=== PATIENT | female | born 2000 | race Caucasian/White ===

== ENCOUNTER 2024-10-27 18:00 | Inpatient (IN) | payer OTHER ==
[2024-10-27] MEDS ORDERED: Lidocaine 1% (PF) 30 ML VIAL SC PRN (19:20)
[2024-10-27] MEDS ORDERED: Diphenoxylate HCl/Atropine Tablet PO PRN (19:20)
[2024-10-27] MEDS ORDERED: Carboprost 250 MCG/ML AMP IM PRN (19:20)
[2024-10-27] MEDS ORDERED: Ibuprofen 800 MG TAB PO PRN (19:20)
[2024-10-27] MEDS ORDERED: hydrALAZINE 20 MG/ML VIAL SLOW IVP PRN (19:20)
[2024-10-27] MEDS ORDERED: Acetaminophen 500 MG TAB PO PRN (19:20)
[2024-10-27] MEDS ORDERED: Tranexamic Acid 1,000 MG/10 ML VIAL IVP PRN (19:20)
[2024-10-27] MEDS ORDERED: Methylergonovine 0.2 MG/ML VIAL IM PRN (19:20)
[2024-10-27] MEDS ORDERED: HYDROcodone/Acetaminophen 5/325 mg Tablet PO PRN (19:20)
[2024-10-27] MEDS ORDERED: Oxytocin 30 units/NS 500 ML 500 ML IV SCH ×3 (19:30)
[2024-10-27 20:59] VITALS: BMI 34.5
[2024-10-27 22:17] LABS: Hematocrit 36.9 % (34.9-44.5); Hemoglobin 12.0 g/dL (12.0-15.5); Mean Corpuscular Hemoglobin 28.5 pg (27.0-33.0); Mean Corpuscular Volume 87.6 fL (81.6-98.3); Platelet Count 268 10x3/uL (150-450); Red Blood Cell (RBC) Count 4.21 10x6/uL (3.90-5.03); White Blood Cell (WBC) Count 11.26 10x3/uL (3.5-10.5)
[2024-10-27 22:52] LABS: Syphilis Antibody Index 0.09 S/CO (<1.00 Non-Reactive)
[2024-10-27 22:54] LABS: Hep B Surf Ag - L&D Non-Reactive S/CO (NonReactive)
[2024-10-28] MEDS ORDERED: Bupivacaine 0.25% HCL 30 ML VIAL ONE (10:00)
[2024-10-28] MEDS: fentaNYL/Ropivacaine Epidural 100 ML ONE (11:02)
[2024-10-28] MEDS ORDERED: Ondansetron PF 4 MG/2 ML Vial IVP PRN ×3 (11:25→16:02)
[2024-10-28] MEDS ORDERED: diphenhydrAMINE 50 MG/ML VIAL IVP PRN ×2 (11:25→16:02)
[2024-10-28] MEDS ORDERED: Acetaminophen 325 MG TAB PO PRN (11:25)
[2024-10-28] MEDS ORDERED: fentaNYL 2 mcg/Ropivacaine 0.2% Epidural 100 ML CADD EPIDURAL SCH (11:30)
[2024-10-28] MEDS ORDERED: Communication Order-Pharmacy FS SCH ×2 (11:30→16:15)
[2024-10-28] MEDS: Ondansetron PF 4 MG/2 ML Vial IVP PRN ×2 (12:01→19:45)
[2024-10-28] MEDS: CEFAZOLIN 2 GM VIAL ONE (13:10)
[2024-10-28] MEDS: Lidocaine 2% MPF 10 ML AMP (For Epidural Use) ONE (16:00)
[2024-10-28] MEDS: Oxytocin 10 UNITS/ML VIAL ONE (16:00)
[2024-10-28] MEDS: PHENYLEPHRINE-NS 100 MCG/ML 10 ML SYRINGE ONE (16:00)
[2024-10-28] MEDS: Ondansetron PF 4 MG/2 ML Vial ONE (16:00)
[2024-10-28] MEDS ORDERED: Ketorolac Tromethamine 30 MG (1 mL) VIAL IVP PRN (16:02)
[2024-10-28] MEDS ORDERED: Meperidine HCl/PF 25 MG (1 mL) VIAL SLOW IVP PRN (16:02)
[2024-10-28] MEDS: Ketorolac Tromethamine 30 MG (1 mL) VIAL IVP SCH ×2 (16:27→21:47)
[2024-10-28] MEDS ORDERED: diphenhydrAMINE 25 MG CAP PO PRN (18:08)
[2024-10-28] MEDS ORDERED: Simethicone Chewable 80 MG TAB PO PRN (18:08)
[2024-10-28] MEDS ORDERED: Bisacodyl 10 MG SUPP PR PRN (18:08)
[2024-10-28] MEDS ORDERED: Lanolin Ointment 7 GM TUBE TOP PRN (18:08)
[2024-10-28] MEDS ORDERED: hydrALAZINE 20 MG/ML VIAL SLOW IVP PRN (18:08)
[2024-10-28] MEDS: Boostrix 0.5 ML (Tdap) VIAL (>/=7 yrs of age) IM ONE (19:16)
[2024-10-28] MEDS: Ferrous Sulfate 325 MG TAB PO SCH (21:20)
[2024-10-29 05:49] LABS: Hematocrit 34.2 % (34.9-44.5); Hemoglobin 11.1 g/dL (12.0-15.5); Mean Corpuscular Hemoglobin 28.4 pg (27.0-33.0); Mean Corpuscular Volume 87.5 fL (81.6-98.3); Platelet Count 231 10x3/uL (150-450); Red Blood Cell (RBC) Count 3.91 10x6/uL (3.90-5.03); White Blood Cell (WBC) Count 11.31 10x3/uL (3.5-10.5)
[2024-10-29] MEDS: HYDROcodone/Acetaminophen 5/325 mg Tablet PO PRN (10:39)
[2024-10-29] MEDS: Ibuprofen 800 MG TAB PO SCH (15:01)
[2024-10-30] MEDS: HYDROcodone/Acetaminophen 5/325 mg Tablet PO PRN (07:57)
[2024-10-31 14:42] VITALS: TEMP 98.3
[2024-10-31 16:23] VITALS: BP 124/74
== END 2024-10-31 19:00 | disposition home or self-care (01) | DRG 788 ==
LOC: CSHLD 18:29 → CSHANTE 19:57 → CSHLD 20:59 → CSHPP 10-28 17:30
PROVIDERS: ADMIT Family Medicine; ATTEND Family Medicine
PROC: 3E0P7VZ Introduction of Hormone into Female Reproductive, Via Natural or Artificial Opening (ICD-10-PCS; 2024-10-27)
PROC: 10D00Z1 Extraction of Products of Conception, Low, Open Approach (ICD-10-PCS; principal; 2024-10-28)
DX: O76 Abnormality in fetal heart rate and rhythm complicating labor and delivery (principal); O36.5930 Maternal care for other known or suspected poor fetal growth, third trimester, not applicable or unspecified; Z3A.37 37 weeks gestation of pregnancy; Z37.0 Single live birth; Z88.1 Allergy status to other antibiotic agents
CPT/HCPCS: 36415; 51702; 85027; 86780; 86850; 86900; 86901; 87340; J0665; J1885; J2250; J2274; J2405; J2590; J3010; J3105; J7120